=== PATIENT | male | born 1960 | race Asian ===

== ENCOUNTER 2020-05-09 01:51 | Emergency (ER) | payer BC ==
[2020-05-09 02:17] VITALS: BP 169/95; PULSE 78; TEMP 97.6; BMI 29.2
[2020-05-09] MEDS ORDERED: LIDOCAINE 5% TOPICAL PATCH TP ONE (02:49)
[2020-05-09] MEDS ORDERED: IBUPROFEN 600 MG TABLET (FP) PO ONE ×2 (02:49→03:07)
[2020-05-09] MEDS ORDERED: CYCLOBENZAPRINE HCL 5 MG TABLET PO ONE (02:50)
[2020-05-09] MEDS ORDERED: CYCLOBENZAPRINE HCL 10 MG TABLET (FP) ONE (03:07)
[2020-05-09] MEDS ORDERED: LIDOCAINE 5% TOPICAL PATCH ONE (03:07)
[2020-05-09 04:08] LABS: PH,URINE 5.5 (5.0-8.0); URINE APPEARANCE Error; URINE BILIRUBIN NEGATIVE (NEGATIVE); URINE COLOR YELLOW; URINE GLUCOSE (UA) NEGATIVE (NEGATIVE); URINE KETONE NEGATIVE (NEGATIVE); URINE LEUK ESTERASE NEGATIVE (NEGATIVE); URINE NITRITE NEGATIVE (NEGATIVE); URINE PROTEIN NEGATIVE (NEGATIVE); URINE UROBILINOGEN 0.2 mg/dL (0.2-1.0)
[2020-05-09] MEDS ORDERED: DEXAMETHASONE 4 MG TABLET (FP) PO ONE (04:54)
[2020-05-09] MEDS ORDERED: LIDOCAINE PATCH REMOVAL MC SCH (22:00)
== END 2020-05-09 05:26 | disposition home or self-care (01) ==
LOC: JER 01:51
DX: M54.5 Low back pain (principal)
CPT/HCPCS: 72131-TC; 74176-TC; 81003; 87086; 99284-25